=== PATIENT | female | born 1945 | race Caucasian/White ===

== ENCOUNTER 2016-06-02 13:07 | Inpatient (IN) | payer MEDICARE, OTHER ==
[~2016-06-02] VITALS: Ht 162.6 cm; Wt 74.5 kg
[2016-06-02] MEDS ORDERED: DEXTROSE 50% SYRINGE 50 ML IV PRN (14:30)
[2016-06-02] MEDS ORDERED: MAG HYDROX 30 ML UDC PO PRN (14:30)
[2016-06-02] MEDS ORDERED: ALPRAZOLAM 0.25 MG TAB PO PRN (14:30)
[2016-06-02] MEDS ORDERED: GLUCAGON 1 MG VIAL IM PRN (14:30)
[2016-06-02] MEDS ORDERED: ONDANSETRON 4 MG VIAL IV PRN (14:30)
[2016-06-02] MEDS ORDERED: ZOLPIDEM 5 MG TAB PO PRN (14:30)
[2016-06-02] MEDS ORDERED: BISACODYL 10 MG SUPP RECTAL PRN (14:30)
[2016-06-02] MEDS: ENOXAPARIN 40 MG/0.4 ML SYR SUBQ SCH (14:30)
[2016-06-02] MEDS ORDERED: SALINE FLUSH 10 ML FLUSH PRN (14:30)
[2016-06-02] MEDS ORDERED: BISACODYL EC 5 MG TAB PO PRN (14:30)
[2016-06-02] MEDS: PANTOPRAZOLE 40 MG TAB PO SCH (14:37)
[2016-06-02 15:00] VITALS: BP_SYST 142; BP_SYST 144; RESP 18; TEMP 97.3; Ht 162.6 cm; Wt 74.5 kg
[2016-06-02] MEDS: NEB-XOPENEX 0.63 MG/3 ML INH SCH ×3 (15:00→22:26)
[2016-06-02 17:04] VITALS: RESP 18
[2016-06-02] MEDS: CEFTRIAXONE 1 GM in SODIUM CHLORIDE 0.9% 50 ML IV SCH (17:16)
[2016-06-02] MEDS: AZITHROMYCIN 500 MG in SODIUM CHLORIDE 0.9% 250 ML IV SCH (18:19)
[2016-06-02 19:19] VITALS: BP_SYST 146; TEMP 97.6
[2016-06-02 19:20] VITALS: RESP 20
[2016-06-02] MEDS: SALINE FLUSH 10 ML FLUSH SCH (19:52)
[2016-06-02] MEDS: METHYLPRED SOD SUCC 125 MG/2 ML VIAL IV SCH (19:53)
[2016-06-02] MEDS ORDERED: PROMETHAZINE 25 MG TAB PO PRN (20:05)
[2016-06-02] MEDS ORDERED: NITROGLYCERIN SL 0.4 MG TAB SL SCH (20:05)
[2016-06-02] MEDS ORDERED: PROMETHAZINE/COD 5 ML UDC PO PRN ×2 (20:05→20:30)
[2016-06-02] MEDS ORDERED: CYANOCOBALAMIN 1000 MCG/ML VIAL IM ONE (20:30)
[2016-06-02] MEDS: CALCIUM CARB/VIT D3 600 MG TAB PO SCH (20:56)
[2016-06-02] MEDS: NEBIVOLOL 2.5 MG TAB PO SCH (20:56)
[2016-06-02] MEDS: PRAVASTATIN 20 MG TAB PO SCH (20:57)
[2016-06-02] MEDS: ASPIRIN 81 MG CHEW TAB PO SCH (20:57)
[2016-06-02] MEDS: BACLOFEN 10 MG TAB PO SCH (20:57)
[2016-06-02] MEDS: BENZONATATE 100 MG CAP PO SCH (20:57)
[2016-06-02] MEDS: NEB-BUDESONIDE 0.5 MG INH SCH (22:26)
[2016-06-02] MEDS: LORAZEPAM 0.5 MG TAB PO SCH (23:25)
[2016-06-02 23:35] VITALS: BP_SYST 139; RESP 18; TEMP 98.1
[2016-06-03] MEDS: NEB-XOPENEX 0.63 MG/3 ML INH SCH ×5 (02:01→18:42)
[2016-06-03 03:10] VITALS: BP_SYST 135; TEMP 97.8
[2016-06-03 03:11] VITALS: RESP 20
[2016-06-03] MEDS: NEB-BUDESONIDE 0.5 MG INH SCH ×2 (06:41→18:42)
[2016-06-03] MEDS: SODIUM CHLORIDE 0.9% FLUSH BAG 500 ML IV SCH (06:42)
[2016-06-03] MEDS: PANTOPRAZOLE 40 MG TAB PO SCH (06:42)
[2016-06-03 07:15] VITALS: BP_SYST 132; RESP 18; TEMP 97.5
[2016-06-03] MEDS ORDERED: KETAMINE INJ 50 MG/ML VIAL ONE (07:22)
[2016-06-03] MEDS: SALINE FLUSH 10 ML FLUSH SCH ×2 (09:01→21:40)
[2016-06-03] MEDS: METHYLPRED SOD SUCC 125 MG/2 ML VIAL IV SCH ×2 (09:01→21:40)
[2016-06-03] MEDS: CEFTRIAXONE 1 GM in SODIUM CHLORIDE 0.9% 50 ML IV SCH (09:01)
[2016-06-03] MEDS: BENZONATATE 100 MG CAP PO SCH ×3 (09:02→21:40)
[2016-06-03] MEDS: BACLOFEN 10 MG TAB PO SCH ×3 (09:03→21:41)
[2016-06-03] MEDS: NEBIVOLOL 2.5 MG TAB PO SCH (09:03)
[2016-06-03] MEDS: CALCIUM CARB/VIT D3 600 MG TAB PO SCH ×2 (09:03→21:41)
[2016-06-03] MEDS: Losartan 50 MG TAB PO SCH (09:03)
[2016-06-03] MEDS: ISOSORBIDE MONO 30 MG TAB PO SCH (09:03)
[2016-06-03] MEDS: CHOLECALCIFEROL 1,000 UNITS TAB PO SCH (09:03)
[2016-06-03] MEDS: LORAZEPAM 0.5 MG TAB PO SCH ×2 (09:03→23:44)
[2016-06-03] MEDS: ENOXAPARIN 40 MG/0.4 ML SYR SUBQ SCH (09:04)
[2016-06-03] MEDS: ACETAMINOPHEN 325 MG TAB PO PRN (09:06)
[2016-06-03] MEDS: AZITHROMYCIN 500 MG in SODIUM CHLORIDE 0.9% 250 ML IV SCH (10:08)
[2016-06-03 10:53] VITALS: BP_SYST 118; RESP 18; TEMP 97.6
[2016-06-03] MEDS ORDERED: ZOLPIDEM 5 MG TAB PO PRN (11:55)
[2016-06-03 15:33] VITALS: BP_SYST 112; RESP 18; TEMP 97.4
[2016-06-03] MEDS ORDERED: humaLOG MIX 75/25 INSULIN SUBQ SCH (17:00)
[2016-06-03 19:25] VITALS: BP_SYST 135; RESP 18; TEMP 97.5
[2016-06-03] MEDS: ASPIRIN 81 MG CHEW TAB PO SCH (21:41)
[2016-06-03] MEDS: PRAVASTATIN 20 MG TAB PO SCH (21:41)
[2016-06-03] MEDS: LEVEMIR INSULIN SUBQ SCH (22:04)
[2016-06-04] VITALS (31 sets, daily range): BP systolic 95–175; RESP 12–26; TEMP 97.5–98.7
[2016-06-04] MEDS: NEB-XOPENEX 0.63 MG/3 ML INH SCH ×9 (00:24→22:39)
[2016-06-04] MEDS: SODIUM CHLORIDE 0.9% FLUSH BAG 500 ML IV SCH (05:53)
[2016-06-04] MEDS: PANTOPRAZOLE 40 MG TAB PO SCH (07:00)
[2016-06-04] MEDS ORDERED: LIDOCAINE 2% SYR 5 ML IV ONE (07:19)
[2016-06-04] MEDS ORDERED: PROPOFOL 50ML VIAL IV ONE (07:19)
[2016-06-04] MEDS: BACLOFEN 10 MG TAB PO SCH ×2 (07:49→16:27)
[2016-06-04] MEDS: BENZONATATE 100 MG CAP PO SCH ×2 (07:50→16:27)
[2016-06-04] MEDS ORDERED: humaLOG MIX 75/25 INSULIN SUBQ SCH ×2 (08:00→17:00)
[2016-06-04] MEDS: NEB-BUDESONIDE 0.5 MG INH SCH ×3 (08:03→22:40)
[2016-06-04] MEDS: SALINE FLUSH 10 ML FLUSH SCH ×2 (08:04→20:23)
[2016-06-04] MEDS: ENOXAPARIN 40 MG/0.4 ML SYR SUBQ SCH (08:05)
[2016-06-04] MEDS: CEFTRIAXONE 1 GM in SODIUM CHLORIDE 0.9% 50 ML IV SCH (08:05)
[2016-06-04] MEDS: METHYLPRED SOD SUCC 125 MG/2 ML VIAL IV SCH ×2 (08:05→20:23)
[2016-06-04] MEDS: CALCIUM CARB/VIT D3 600 MG TAB PO SCH ×2 (09:00→21:59)
[2016-06-04] MEDS: AZITHROMYCIN 500 MG in SODIUM CHLORIDE 0.9% 250 ML IV SCH (09:10)
[2016-06-04] MEDS ORDERED: LACT RINGERS 1,000 ML IV SCH (11:40)
[2016-06-04] MEDS ORDERED: LIDOCAINE 1% BUFFERED 1 ML SYR INTRADERM PRN (11:40)
[2016-06-04] MEDS ORDERED: FENTANYL 100 MCG/2 ML AMP IV ONE (13:25)
[2016-06-04] MEDS ORDERED: LORAZEPAM 2 MG/ML VIAL IV ONE ×2 (14:10→19:35)
[2016-06-04] MEDS ORDERED: ACETAMINOPHEN 1,000 MG/100 ML IV ONE (14:10)
[2016-06-04] MEDS ORDERED: Furosemide 40 MG TAB PO ONE (15:45)
[2016-06-04] MEDS ORDERED: KCL CR 10 MEQ CAP PO ONE (15:45)
[2016-06-04] MEDS: Losartan 50 MG TAB PO SCH (16:26)
[2016-06-04] MEDS: ISOSORBIDE MONO 30 MG TAB PO SCH (16:27)
[2016-06-04] MEDS: NEBIVOLOL 2.5 MG TAB PO SCH (16:27)
[2016-06-04] MEDS: CHOLECALCIFEROL 1,000 UNITS TAB PO SCH (16:27)
[2016-06-04] MEDS: DILAUDID 1 MG/ML AMP IV PRN (18:08)
[2016-06-04] MEDS ORDERED: DILAUDID 1 MG/ML AMP IV ONE (19:35)
[2016-06-04] MEDS: LEVEMIR INSULIN SUBQ SCH (21:00)
[2016-06-04] MEDS: PRAVASTATIN 20 MG TAB PO SCH (21:59)
[2016-06-04] MEDS ORDERED: MISSING DOSE XX ONE (23:10)
[2016-06-05] VITALS (9 sets, daily range): BP systolic 113–133; RESP 16–20; TEMP 97–98.6
[2016-06-05] MEDS: BACLOFEN 10 MG TAB PO SCH ×4 (00:28→20:53)
[2016-06-05] MEDS: ASPIRIN 81 MG CHEW TAB PO SCH (00:28)
[2016-06-05] MEDS: LORAZEPAM 0.5 MG TAB PO SCH (00:47)
[2016-06-05] MEDS: BENZONATATE 100 MG CAP PO SCH ×4 (00:47→20:53)
[2016-06-05] MEDS: NEB-XOPENEX 0.63 MG/3 ML INH SCH ×6 (02:24→23:10)
[2016-06-05] MEDS: DILAUDID 1 MG/ML AMP IV PRN (04:40)
[2016-06-05] MEDS: SODIUM CHLORIDE 0.9% FLUSH BAG 500 ML IV SCH (06:11)
[2016-06-05] MEDS: PANTOPRAZOLE 40 MG TAB PO SCH (06:11)
[2016-06-05] MEDS: NEB-BUDESONIDE 0.5 MG INH SCH ×2 (06:22→19:06)
[2016-06-05] MEDS ORDERED: humaLOG MIX 75/25 INSULIN SUBQ SCH (08:00)
[2016-06-05] MEDS: SALINE FLUSH 10 ML FLUSH SCH ×2 (08:52→20:56)
[2016-06-05] MEDS: METHYLPRED SOD SUCC 125 MG/2 ML VIAL IV SCH (08:52)
[2016-06-05] MEDS: CHOLECALCIFEROL 1,000 UNITS TAB PO SCH (08:53)
[2016-06-05] MEDS: CALCIUM CARB/VIT D3 600 MG TAB PO SCH ×2 (08:53→20:53)
[2016-06-05] MEDS: ISOSORBIDE MONO 30 MG TAB PO SCH (08:54)
[2016-06-05] MEDS: CEFTRIAXONE 1 GM in SODIUM CHLORIDE 0.9% 50 ML IV SCH (09:04)
[2016-06-05] MEDS: AZITHROMYCIN 500 MG in SODIUM CHLORIDE 0.9% 250 ML IV SCH (10:34)
[2016-06-05] MEDS: NEBIVOLOL 2.5 MG TAB PO SCH (14:03)
[2016-06-05] MEDS: Losartan 50 MG TAB PO SCH (14:03)
[2016-06-05] MEDS: humaLOG MIX 75/25 INSULIN SUBQ SCH (17:08)
[2016-06-05] MEDS: PREDNISONE 20 MG TAB PO SCH (18:11)
[2016-06-05] MEDS ORDERED: METHYLPRED SOD SUCC 40 MG VIAL IV SCH (20:00)
[2016-06-05] MEDS ORDERED: METHYLPRED SOD SUCC 125 MG/2 ML VIAL IV SCH (20:00)
[2016-06-05] MEDS: KCL CR 10 MEQ CAP PO SCH (20:53)
[2016-06-05] MEDS: PRAVASTATIN 20 MG TAB PO SCH (20:53)
[2016-06-05] MEDS: Furosemide 20 MG/2 ML VIAL IV SCH (20:55)
[2016-06-05] MEDS: LEVEMIR INSULIN SUBQ SCH (20:56)
[2016-06-05] MEDS ORDERED: LEVEMIR INSULIN SUBQ SCH (21:00)
[2016-06-06] VITALS (7 sets, daily range): BP systolic 104–131; RESP 16–20; TEMP 97.7–98.7
[2016-06-06] MEDS: NEB-XOPENEX 0.63 MG/3 ML INH SCH ×6 (02:28→22:27)
[2016-06-06] MEDS: PANTOPRAZOLE 40 MG TAB PO SCH (06:11)
[2016-06-06] MEDS: SODIUM CHLORIDE 0.9% FLUSH BAG 500 ML IV SCH (06:11)
[2016-06-06] MEDS: NEB-BUDESONIDE 0.5 MG INH SCH ×2 (06:25→18:14)
[2016-06-06] MEDS: humaLOG MIX 75/25 INSULIN SUBQ SCH ×2 (08:05→17:16)
[2016-06-06] MEDS: Furosemide 20 MG/2 ML VIAL IV SCH (08:09)
[2016-06-06] MEDS: SALINE FLUSH 10 ML FLUSH SCH ×2 (08:09→21:39)
[2016-06-06] MEDS: CEFTRIAXONE 1 GM in SODIUM CHLORIDE 0.9% 50 ML IV SCH (08:09)
[2016-06-06] MEDS: CALCIUM CARB/VIT D3 600 MG TAB PO SCH ×2 (08:12→21:39)
[2016-06-06] MEDS: KCL CR 10 MEQ CAP PO SCH (08:12)
[2016-06-06] MEDS: BENZONATATE 100 MG CAP PO SCH ×3 (08:12→21:39)
[2016-06-06] MEDS: PREDNISONE 20 MG TAB PO SCH (08:12)
[2016-06-06] MEDS ORDERED: MISSING DOSE XX ONE (08:20)
[2016-06-06] MEDS: CHOLECALCIFEROL 1,000 UNITS TAB PO SCH (09:20)
[2016-06-06] MEDS: Losartan 50 MG TAB PO SCH (09:20)
[2016-06-06] MEDS: ISOSORBIDE MONO 30 MG TAB PO SCH (09:20)
[2016-06-06] MEDS: NEBIVOLOL 2.5 MG TAB PO SCH (09:20)
[2016-06-06] MEDS: ACETAMINOPHEN 325 MG TAB PO PRN (10:07)
[2016-06-06] MEDS: PRAVASTATIN 20 MG TAB PO SCH (21:38)
[2016-06-06] MEDS: BACLOFEN 10 MG TAB PO SCH (21:39)
[2016-06-06] MEDS: LEVEMIR INSULIN SUBQ SCH (22:27)
[2016-06-07] VITALS (10 sets, daily range): BP systolic 105–127; RESP 16–20; TEMP 97.2–98.3
[2016-06-07] MEDS: NEB-XOPENEX 0.63 MG/3 ML INH SCH ×6 (03:17→23:11)
[2016-06-07] MEDS: PANTOPRAZOLE 40 MG TAB PO SCH (06:36)
[2016-06-07] MEDS: SODIUM CHLORIDE 0.9% FLUSH BAG 500 ML IV SCH (06:38)
[2016-06-07] MEDS: NEB-BUDESONIDE 0.5 MG INH SCH ×2 (06:44→19:34)
[2016-06-07] MEDS: Losartan 50 MG TAB PO SCH (08:34)
[2016-06-07] MEDS: KCL CR 10 MEQ CAP PO SCH (08:34)
[2016-06-07] MEDS: CALCIUM CARB/VIT D3 600 MG TAB PO SCH ×2 (08:34→20:24)
[2016-06-07] MEDS: ISOSORBIDE MONO 30 MG TAB PO SCH (08:34)
[2016-06-07] MEDS: BENZONATATE 100 MG CAP PO SCH ×3 (08:34→20:24)
[2016-06-07] MEDS: NEBIVOLOL 2.5 MG TAB PO SCH (08:34)
[2016-06-07] MEDS: CHOLECALCIFEROL 1,000 UNITS TAB PO SCH (08:34)
[2016-06-07] MEDS: humaLOG MIX 75/25 INSULIN SUBQ SCH ×2 (08:37→16:48)
[2016-06-07] MEDS: METHYLPRED SOD SUCC 125 MG/2 ML VIAL IV SCH ×2 (08:38→20:23)
[2016-06-07] MEDS: SALINE FLUSH 10 ML FLUSH SCH ×2 (08:38→20:23)
[2016-06-07] MEDS: CEFTRIAXONE 1 GM in SODIUM CHLORIDE 0.9% 50 ML IV SCH (08:39)
[2016-06-07] MEDS: Furosemide 20 MG/2 ML VIAL IV SCH (08:39)
[2016-06-07] MEDS: NEB-NACL 3% 4 ML NEBU INH SCH ×3 (10:40→23:11)
[2016-06-07] MEDS: ONDANSETRON 4 MG VIAL IV PUSH PRN (13:39)
[2016-06-07] MEDS ORDERED: MISSING DOSE XX ONE (20:20)
[2016-06-07] MEDS: PRAVASTATIN 20 MG TAB PO SCH (20:24)
[2016-06-07] MEDS: BACLOFEN 10 MG TAB PO SCH (20:24)
[2016-06-07] MEDS: LEVEMIR INSULIN SUBQ SCH (20:25)
[2016-06-07] MEDS: ASPIRIN 81 MG CHEW TAB PO SCH (22:28)
[2016-06-07] MEDS ORDERED: ZOLPIDEM 5 MG TAB PO ONE (23:05)
[2016-06-08] MEDS: NEB-XOPENEX 0.63 MG/3 ML INH SCH ×6 (02:49→22:14)
[2016-06-08 05:22] VITALS: BP_SYST 117; RESP 18; TEMP 97.6
[2016-06-08] MEDS: SODIUM CHLORIDE 0.9% FLUSH BAG 500 ML IV SCH (06:27)
[2016-06-08] MEDS: PANTOPRAZOLE 40 MG TAB PO SCH (06:28)
[2016-06-08 07:35] VITALS: BP_SYST 123; RESP 18; TEMP 97.6
[2016-06-08] MEDS ORDERED: PHARMACY TO DOSE CEFEPIME IV SCH (07:55)
[2016-06-08] MEDS ORDERED: DILAUDID 1 MG/ML AMP ONE (07:55)
[2016-06-08] MEDS ORDERED: PHARMACY TO DOSE VANCOMYCIN IV SCH (07:55)
[2016-06-08] MEDS: NEB-BUDESONIDE 0.5 MG INH SCH ×3 (07:55→18:44)
[2016-06-08] MEDS: NEB-NACL 3% 4 ML NEBU INH SCH ×4 (07:55→22:14)
[2016-06-08] MEDS: MORPHINE 4 MG/ML SYR ONE ×2 (07:56→08:00)
[2016-06-08] MEDS: METHYLPRED SOD SUCC 125 MG/2 ML VIAL IV SCH ×2 (07:58→20:59)
[2016-06-08] MEDS: SALINE FLUSH 10 ML FLUSH SCH ×2 (08:02→20:59)
[2016-06-08] MEDS: Furosemide 20 MG/2 ML VIAL IV SCH (08:02)
[2016-06-08] MEDS: CHOLECALCIFEROL 1,000 UNITS TAB PO SCH (08:06)
[2016-06-08] MEDS: BENZONATATE 100 MG CAP PO SCH ×3 (08:06→21:00)
[2016-06-08] MEDS: NEBIVOLOL 2.5 MG TAB PO SCH (08:06)
[2016-06-08] MEDS: Losartan 50 MG TAB PO SCH (08:06)
[2016-06-08] MEDS: KCL CR 10 MEQ CAP PO SCH (08:06)
[2016-06-08] MEDS: ISOSORBIDE MONO 30 MG TAB PO SCH (08:06)
[2016-06-08] MEDS: CALCIUM CARB/VIT D3 600 MG TAB PO SCH ×2 (08:06→20:59)
[2016-06-08] MEDS ORDERED: CEFEPIME 2000 MG/100 ML D5W 100 ML IV SCH (09:00)
[2016-06-08] MEDS ORDERED: VANCOMYCIN 1,250 MG in SODIUM CHLORIDE 0.9% 250 ML IV SCH (10:00)
[2016-06-08] MEDS: humaLOG MIX 75/25 INSULIN SUBQ SCH ×2 (10:07→17:00)
[2016-06-08] MEDS: LEVOFLOXACIN 750 MG TAB PO SCH (10:14)
[2016-06-08] MEDS: ONDANSETRON 4 MG VIAL IV PUSH PRN ×2 (10:15→16:15)
[2016-06-08] MEDS ORDERED: MISSING DOSE XX ONE (10:45)
[2016-06-08 10:54] VITALS: BP_SYST 134; RESP 18; TEMP 97.4
[2016-06-08] MEDS: ACETAMINOPHEN 325 MG TAB PO PRN (14:03)
[2016-06-08] MEDS: SACCHA BOULARDII 250MG CAP PO SCH ×2 (16:50→21:00)
[2016-06-08 17:10] VITALS: BP_SYST 115; RESP 20; TEMP 97.7
[2016-06-08 19:19] VITALS: BP_SYST 99; RESP 20; TEMP 97.9
[2016-06-08] MEDS: ASPIRIN 81 MG CHEW TAB PO SCH (20:59)
[2016-06-08] MEDS: BACLOFEN 10 MG TAB PO SCH (21:00)
[2016-06-08] MEDS: PRAVASTATIN 20 MG TAB PO SCH (21:00)
[2016-06-08] MEDS: LEVEMIR INSULIN SUBQ SCH (21:01)
[2016-06-08] MEDS: ZOLPIDEM 5 MG TAB PO PRN (23:03)
[2016-06-08 23:10] VITALS: BP_SYST 104; RESP 18; TEMP 97.5
[2016-06-09] VITALS (7 sets, daily range): BP systolic 105–120; RESP 18–20; TEMP 97.6–98.3
[2016-06-09] MEDS: NEB-XOPENEX 0.63 MG/3 ML INH SCH ×6 (02:31→22:30)
[2016-06-09] MEDS: SODIUM CHLORIDE 0.9% FLUSH BAG 500 ML IV SCH (06:00)
[2016-06-09] MEDS: NEB-BUDESONIDE 0.5 MG INH SCH ×2 (06:20→18:24)
[2016-06-09] MEDS: NEB-NACL 3% 4 ML NEBU INH SCH ×4 (06:20→22:30)
[2016-06-09] MEDS: PANTOPRAZOLE 40 MG TAB PO SCH (06:46)
[2016-06-09] MEDS: humaLOG MIX 75/25 INSULIN SUBQ SCH ×2 (08:31→17:28)
[2016-06-09] MEDS: Furosemide 20 MG/2 ML VIAL IV SCH (08:32)
[2016-06-09] MEDS: SALINE FLUSH 10 ML FLUSH SCH ×2 (08:32→19:47)
[2016-06-09] MEDS: METHYLPRED SOD SUCC 125 MG/2 ML VIAL IV SCH ×2 (08:32→19:47)
[2016-06-09] MEDS: BENZONATATE 100 MG CAP PO SCH ×3 (08:36→20:08)
[2016-06-09] MEDS: CHOLECALCIFEROL 1,000 UNITS TAB PO SCH (08:36)
[2016-06-09] MEDS: CALCIUM CARB/VIT D3 600 MG TAB PO SCH ×2 (08:36→20:07)
[2016-06-09] MEDS: ISOSORBIDE MONO 30 MG TAB PO SCH (08:37)
[2016-06-09] MEDS: LEVOFLOXACIN 750 MG TAB PO SCH (08:37)
[2016-06-09] MEDS: SACCHA BOULARDII 250MG CAP PO SCH ×3 (08:37→20:08)
[2016-06-09] MEDS: KCL CR 10 MEQ CAP PO SCH (09:44)
[2016-06-09] MEDS ORDERED: POLYETHYLENE GLYCOL 17 GM PACKET PO PRN (10:55)
[2016-06-09] MEDS ORDERED: NEBIVOLOL 2.5 MG TAB PO ONE (16:30)
[2016-06-09] MEDS: Losartan 50 MG TAB PO SCH (16:30)
[2016-06-09] MEDS: NEBIVOLOL 2.5 MG TAB PO SCH (16:32)
[2016-06-09] MEDS: BACLOFEN 10 MG TAB PO SCH (20:07)
[2016-06-09] MEDS: PRAVASTATIN 20 MG TAB PO SCH (20:07)
[2016-06-09] MEDS: ASPIRIN 81 MG CHEW TAB PO SCH (20:07)
[2016-06-09] MEDS: LEVEMIR INSULIN SUBQ SCH (20:08)
[2016-06-09] MEDS: ZOLPIDEM 5 MG TAB PO PRN (23:15)
[2016-06-10] VITALS (10 sets, daily range): BP systolic 106–122; RESP 16–20; TEMP 97.6–98.2
[2016-06-10] MEDS: LORAZEPAM 0.5 MG TAB PO PRN (01:17)
[2016-06-10] MEDS: NEB-XOPENEX 0.63 MG/3 ML INH SCH ×6 (03:00→23:30)
[2016-06-10] MEDS: SODIUM CHLORIDE 0.9% FLUSH BAG 500 ML IV SCH (06:00)
[2016-06-10] MEDS: PANTOPRAZOLE 40 MG TAB PO SCH (06:12)
[2016-06-10] MEDS: NEB-NACL 3% 4 ML NEBU INH SCH ×4 (07:46→23:30)
[2016-06-10] MEDS: NEB-BUDESONIDE 0.5 MG INH SCH ×2 (07:50→19:51)
[2016-06-10] MEDS: humaLOG MIX 75/25 INSULIN SUBQ SCH ×2 (08:06→16:52)
[2016-06-10] MEDS: Furosemide 20 MG/2 ML VIAL IV SCH (09:10)
[2016-06-10] MEDS: SALINE FLUSH 10 ML FLUSH SCH ×2 (09:10→22:21)
[2016-06-10] MEDS: METHYLPRED SOD SUCC 125 MG/2 ML VIAL IV SCH (09:10)
[2016-06-10] MEDS: SACCHA BOULARDII 250MG CAP PO SCH ×3 (09:11→22:20)
[2016-06-10] MEDS: CHOLECALCIFEROL 1,000 UNITS TAB PO SCH (09:11)
[2016-06-10] MEDS: ISOSORBIDE MONO 30 MG TAB PO SCH (09:11)
[2016-06-10] MEDS: CALCIUM CARB/VIT D3 600 MG TAB PO SCH ×2 (09:11→22:20)
[2016-06-10] MEDS: NEBIVOLOL 2.5 MG TAB PO SCH (09:11)
[2016-06-10] MEDS: LEVOFLOXACIN 750 MG TAB PO SCH (09:11)
[2016-06-10] MEDS: BENZONATATE 100 MG CAP PO SCH ×3 (09:11→22:20)
[2016-06-10] MEDS: Losartan 50 MG TAB PO SCH (09:11)
[2016-06-10] MEDS: KCL CR 10 MEQ CAP PO SCH (09:11)
[2016-06-10] MEDS: Senna/DSS 50/8.6 MG TAB PO SCH ×2 (13:30→21:00)
[2016-06-10] MEDS: BACLOFEN 10 MG TAB PO SCH (22:20)
[2016-06-10] MEDS: ASPIRIN 81 MG CHEW TAB PO SCH (22:20)
[2016-06-10] MEDS: PRAVASTATIN 20 MG TAB PO SCH (22:20)
[2016-06-10] MEDS: LEVEMIR INSULIN SUBQ SCH (22:22)
[2016-06-10] MEDS: ZOLPIDEM 5 MG TAB PO PRN (23:05)
[2016-06-11] VITALS (8 sets, daily range): BP systolic 103–140; RESP 16–20; TEMP 97.6–98.7
[2016-06-11] MEDS: LORAZEPAM 0.5 MG TAB PO PRN (02:38)
[2016-06-11] MEDS: SODIUM CHLORIDE 0.9% FLUSH BAG 500 ML IV SCH (06:00)
[2016-06-11] MEDS: NEB-XOPENEX 0.63 MG/3 ML INH SCH ×5 (06:21→22:58)
[2016-06-11] MEDS: NEB-BUDESONIDE 0.5 MG INH SCH ×2 (06:21→17:59)
[2016-06-11] MEDS: NEB-NACL 3% 4 ML NEBU INH SCH ×4 (06:21→22:58)
[2016-06-11] MEDS: PANTOPRAZOLE 40 MG TAB PO SCH (06:51)
[2016-06-11] MEDS: humaLOG MIX 75/25 INSULIN SUBQ SCH ×2 (08:00→17:08)
[2016-06-11] MEDS: Losartan 50 MG TAB PO SCH (08:49)
[2016-06-11] MEDS: KCL CR 10 MEQ CAP PO SCH (08:49)
[2016-06-11] MEDS: Furosemide 20 MG/2 ML VIAL IV SCH (08:49)
[2016-06-11] MEDS: SACCHA BOULARDII 250MG CAP PO SCH ×3 (10:04→22:17)
[2016-06-11] MEDS: PREDNISONE 20 MG TAB PO SCH (10:04)
[2016-06-11] MEDS: Senna/DSS 50/8.6 MG TAB PO SCH ×2 (10:04→22:17)
[2016-06-11] MEDS: BENZONATATE 100 MG CAP PO SCH ×3 (10:04→22:17)
[2016-06-11] MEDS: LEVOFLOXACIN 750 MG TAB PO SCH (10:04)
[2016-06-11] MEDS: CALCIUM CARB/VIT D3 600 MG TAB PO SCH ×2 (10:04→22:16)
[2016-06-11] MEDS: CHOLECALCIFEROL 1,000 UNITS TAB PO SCH (10:06)
[2016-06-11] MEDS: SALINE FLUSH 10 ML FLUSH SCH ×2 (10:07→20:00)
[2016-06-11] MEDS: ACETAMINOPHEN 325 MG TAB PO PRN (11:38)
[2016-06-11] MEDS: NEBIVOLOL 2.5 MG TAB PO SCH (15:14)
[2016-06-11] MEDS: ISOSORBIDE MONO 30 MG TAB PO SCH (15:15)
[2016-06-11] MEDS ORDERED: OPTIRAY 350 100 ML VIAL HMH IV ONE (16:10)
[2016-06-11] MEDS ORDERED: SODIUM CHLORIDE 0.9% 500 ML IV ONE (16:25)
[2016-06-11] MEDS: SODIUM CHLORIDE 0.9% 1,000 ML IV SCH (17:09)
[2016-06-11] MEDS ORDERED: POLYETHYLENE GLYCOL 17 GM PACKET PO SCH (21:00)
[2016-06-11] MEDS: PRAVASTATIN 20 MG TAB PO SCH (22:17)
[2016-06-11] MEDS: ASPIRIN 81 MG CHEW TAB PO SCH (22:17)
[2016-06-11] MEDS: BACLOFEN 10 MG TAB PO SCH (22:17)
[2016-06-11] MEDS: LEVEMIR INSULIN SUBQ SCH (22:19)
[2016-06-12] VITALS (9 sets, daily range): BP systolic 96–124; RESP 16–20; TEMP 97.7–98.4
[2016-06-12] MEDS: LORAZEPAM 0.5 MG TAB PO PRN (00:44)
[2016-06-12] MEDS: NEB-XOPENEX 0.63 MG/3 ML INH SCH ×5 (02:36→22:44)
[2016-06-12] MEDS: SODIUM CHLORIDE 0.9% FLUSH BAG 500 ML IV SCH (06:00)
[2016-06-12] MEDS: NEB-NACL 3% 4 ML NEBU INH SCH ×4 (06:30→22:44)
[2016-06-12] MEDS: NEB-BUDESONIDE 0.5 MG INH SCH ×2 (06:46→18:58)
[2016-06-12] MEDS: SODIUM CHLORIDE 0.9% 1,000 ML IV SCH (07:32)
[2016-06-12] MEDS: PANTOPRAZOLE 40 MG TAB PO SCH ×2 (07:33→22:43)
[2016-06-12] MEDS: SALINE FLUSH 10 ML FLUSH SCH ×2 (08:00→20:00)
[2016-06-12] MEDS: Furosemide 20 MG/2 ML VIAL IV SCH (08:05)
[2016-06-12] MEDS: NEBIVOLOL 2.5 MG TAB PO SCH (08:05)
[2016-06-12] MEDS: CHOLECALCIFEROL 1,000 UNITS TAB PO SCH (08:06)
[2016-06-12] MEDS: PREDNISONE 20 MG TAB PO SCH (08:06)
[2016-06-12] MEDS: BENZONATATE 100 MG CAP PO SCH ×3 (08:06→22:42)
[2016-06-12] MEDS: SACCHA BOULARDII 250MG CAP PO SCH ×3 (08:07→22:43)
[2016-06-12] MEDS: KCL CR 10 MEQ CAP PO SCH (08:07)
[2016-06-12] MEDS: LEVOFLOXACIN 750 MG TAB PO SCH (08:07)
[2016-06-12] MEDS: CALCIUM CARB/VIT D3 600 MG TAB PO SCH ×2 (08:07→22:43)
[2016-06-12] MEDS: Senna/DSS 50/8.6 MG TAB PO SCH ×2 (08:08→22:43)
[2016-06-12] MEDS: ISOSORBIDE MONO 30 MG TAB PO SCH (08:08)
[2016-06-12] MEDS: Losartan 50 MG TAB PO SCH (08:08)
[2016-06-12] MEDS ORDERED: SODIUM CHLORIDE 0.9% 1,000 ML IV SCH (09:35)
[2016-06-12] MEDS: humaLOG MIX 75/25 INSULIN SUBQ SCH (09:42)
[2016-06-12] MEDS: ONDANSETRON 4 MG VIAL IV PUSH PRN (09:42)
[2016-06-12] MEDS: POLYETHYLENE GLYCOL 17 GM PACKET PO SCH ×2 (11:26→21:00)
[2016-06-12] MEDS: FLUCONAZOLE 100 MG in SODIUM CHLORIDE 0.9% 50 ML IV SCH (11:27)
[2016-06-12] MEDS: SUCRALFATE 1GM/10ML SUSP PO SCH ×2 (11:47→16:21)
[2016-06-12] MEDS: NYSTATIN 500,000 UNITS/5 ML SUSP SWISH.SWAL SCH ×4 (11:47→22:42)
[2016-06-12] MEDS: ACETAMINOPHEN 325 MG TAB PO PRN (11:48)
[2016-06-12] MEDS ORDERED: NYSTATIN 500,000 UNITS/5 ML SUSP SWISH.SWAL SCH ×2 (13:00→18:00)
[2016-06-12] MEDS ORDERED: LEVEMIR INSULIN SUBQ SCH (21:00)
[2016-06-12] MEDS: BACLOFEN 10 MG TAB PO SCH (22:43)
[2016-06-12] MEDS: ASPIRIN 81 MG CHEW TAB PO SCH (22:43)
[2016-06-12] MEDS: PRAVASTATIN 20 MG TAB PO SCH (22:43)
[2016-06-13] VITALS (8 sets, daily range): BP systolic 102–122; RESP 16–20; TEMP 97.9–98.2
[2016-06-13] MEDS: LORAZEPAM 0.5 MG TAB PO PRN (00:12)
[2016-06-13] MEDS: SODIUM CHLORIDE 0.9% FLUSH BAG 500 ML IV SCH (06:00)
[2016-06-13] MEDS: SUCRALFATE 1GM/10ML SUSP PO SCH ×2 (06:45→11:14)
[2016-06-13] MEDS: NEB-BUDESONIDE 0.5 MG INH SCH (07:00)
[2016-06-13] MEDS: NEB-XOPENEX 0.63 MG/3 ML INH SCH ×3 (07:01→14:42)
[2016-06-13] MEDS: NEB-NACL 3% 4 ML NEBU INH SCH ×2 (07:01→10:38)
[2016-06-13] MEDS ORDERED: MISSING DOSE XX ONE ×3 (07:50→11:05)
[2016-06-13] MEDS: SALINE FLUSH 10 ML FLUSH SCH (08:00)
[2016-06-13] MEDS: FLUCONAZOLE 100 MG in SODIUM CHLORIDE 0.9% 50 ML IV SCH (08:52)
[2016-06-13] MEDS: POLYETHYLENE GLYCOL 17 GM PACKET PO SCH (08:53)
[2016-06-13] MEDS: CALCIUM CARB/VIT D3 600 MG TAB PO SCH (08:53)
[2016-06-13] MEDS: NYSTATIN 500,000 UNITS/5 ML SUSP SWISH.SWAL SCH ×2 (08:53→13:03)
[2016-06-13] MEDS: NEBIVOLOL 2.5 MG TAB PO SCH (08:53)
[2016-06-13] MEDS: PANTOPRAZOLE 40 MG TAB PO SCH (08:55)
[2016-06-13] MEDS: SACCHA BOULARDII 250MG CAP PO SCH (08:55)
[2016-06-13] MEDS: ISOSORBIDE MONO 30 MG TAB PO SCH (08:55)
[2016-06-13] MEDS: CHOLECALCIFEROL 1,000 UNITS TAB PO SCH (08:56)
[2016-06-13] MEDS: BENZONATATE 100 MG CAP PO SCH (08:56)
[2016-06-13] MEDS: Senna/DSS 50/8.6 MG TAB PO SCH (08:56)
[2016-06-13] MEDS: Losartan 50 MG TAB PO SCH (08:58)
[2016-06-13] MEDS ORDERED: PREDNISONE 10 MG TAB PO SCH (09:00)
[2016-06-13] MEDS: ACETAMINOPHEN 325 MG TAB PO PRN (10:26)
== END 2016-06-13 16:36 | disposition home or self-care (01) | DRG 166 ==
LOC: ENRESERVTM → ENRESERVDT → ENPENDDIS 13:49 → 3NT 13:49
PROVIDERS: ADMIT Internal Medicine; ATTEND Internal Medicine
PROC: 07B74ZX Excision of Thorax Lymphatic, Percutaneous Endoscopic Approach, Diagnostic (ICD-10-PCS; 2016-06-04)
PROC: 0BB88ZX Excision of Left Upper Lobe Bronchus, Via Natural or Artificial Opening Endoscopic, Diagnostic (ICD-10-PCS; 2016-06-04)
PROC: 0B988ZX Drainage of Left Upper Lobe Bronchus, Via Natural or Artificial Opening Endoscopic, Diagnostic (ICD-10-PCS; 2016-06-04)
PROC: 0W9B30Z Drainage of Left Pleural Cavity with Drainage Device, Percutaneous Approach (ICD-10-PCS; principal; 2016-06-04 07:15)
DX: J44.0 Chronic obstructive pulmonary disease with (acute) lower respiratory infection (principal); J18.9 Pneumonia, unspecified organism; B37.81 Candidal esophagitis; B37.0 Candidal stomatitis; J45.901 Unspecified asthma with (acute) exacerbation; J93.83 Other pneumothorax; F15.93 Other stimulant use, unspecified with withdrawal; R04.2 Hemoptysis; K90.9 Intestinal malabsorption, unspecified; J44.1 Chronic obstructive pulmonary disease with (acute) exacerbation; R91.8 Other nonspecific abnormal finding of lung field; G47.00 Insomnia, unspecified; T38.0X5A Adverse effect of glucocorticoids and synthetic analogues, initial encounter; G43.909 Migraine, unspecified, not intractable, without status migrainosus; R53.83 Other fatigue; I25.10 Atherosclerotic heart disease of native coronary artery without angina pectoris; R73.9 Hyperglycemia, unspecified; I10 Essential (primary) hypertension; E78.5 Hyperlipidemia, unspecified; K44.9 Diaphragmatic hernia without obstruction or gangrene; Z79.82 Long term (current) use of aspirin; E16.4 Increased secretion of gastrin; R59.0 Localized enlarged lymph nodes; Z96.651 Presence of right artificial knee joint; J20.9 Acute bronchitis, unspecified
CPT/HCPCS: 36600; 71010; 71020; 71250; 71275; 74175; 80048; 80053; 81003; 82553; 82785; 82803; 82947; 83735; 83880; 84439; 84443; 84484; 85025; 85652; 86003; 86677; 87071; 87081; 87102; 87116; 87205; 87206; 88104; 88108; 88305; 89051; 93005; 93306; 93970; 94640; 94664; 94799; 99223; 99232; 99233